=== PATIENT | male | born 1945 | race Caucasian/White ===

== ENCOUNTER 2024-09-07 16:26 | Emergency (ER) | payer MEDICARE, MEDICAID, SELFPAY ==
[2024-09-07 16:43] VITALS: BP 135/76; PULSE 78; RESP 18; TEMP 37.1; O2SAT 99; BMI 28.1
--- NOTE | 2024-09-07 16:54 | XR_ITS ---
Examination: CT maxillofacial, without intravenous contrast. 2-D sagittal reconstructions. 3-D reconstructions. Date and time of exam:September 07, 2024 1745 hours INDICATIONS: Patient fell last week with injury to the face, facial pain CTDI: vol (mGy):42.9 DLP: (mGycm):968 Technique: Multiple axial images of maxillofacial region, 3.0 mm slice thickness. 2-D sagittal and coronal reconstructions. 3-D reconstructions. Low dose protocols were performed. One or more of the following dose reduction techniques were used; automated exposure control, adjustment of the mA and/or KV according to patient size, use of iterative reconstruction technique. Findings: Frontal bone frontal sinuses intact No acute nasal bone fracture Orbital rims intact. No depression zygomatic arches The optic globes exhibit symmetry Maxilla mandible intact. IMPRESSION: No acute facial fracture
--- NOTE | 2024-09-07 16:54 | XR_ITS ---
Examination: CT brain head without contrast. 2-D sagittal coronal reconstructions Date and time of exam:September 07, 2024 1745 hours INDICATIONS: Patient fell last week with injury to the head, head pain CTDI: vol (mGy):55 DLP: (mGycm):1222 Technique: Multiple CT axial sections of the brain have been obtained, 5 mm slice thickness. Contrast has not been administered. 2-D sagittal, coronal reconstructions have been obtained Low dose protocols were performed. One or more of the following dose reduction techniques were used; automated exposure control, adjustment of the mA and/or KV according to patient size, use of iterative reconstruction technique. Findings: No significant ventricular enlargement. Intra-axial or extra-axial hemorrhage density is not seen. No mass effect or midline shift Basal cisterns are not remarkable. Fourth ventricle is midline. Cranial vault intact. Impression: Negative for acute hemorrhage, mass effect or midline shift
--- NOTE | 2024-09-07 16:54 | XR_ITS ---
Examination: CT cervical spine without contrast 2-D sagittal reconstructions 2-D coronal reconstructions 3-D reconstructions. Exam date and time:September 07, 2024 1645 hours INDICATIONS: Patient fell last week with injury to the neck, neck pain CTDI:vol (mGy) 15.5 DLP: (mGycm) 361 Technique: Multiple 2 mm axial sections of the cervical spine have been obtained. The coronal and sagittal reconstructions have been obtained. 3-D reconstructions have been obtained. Low dose protocols were performed. One or more of the following dose reduction techniques were used; automated exposure control, adjustment of the mA and/or KV according to patient size, use of iterative reconstruction technique. Findings: Axial sections demonstrate intact base of the skull. C1 exhibit satisfactory relationship to the odontoid. No acute cervical vertebral body fracture seen. Alignment posterior spinous processes satisfactory. Impression: No acute cervical fracture.
--- NOTE | 2024-09-07 16:59 | PD.EDRME ---
Rapid Medical Screening Exam RME Arrival date/time: 09/07/24 16:26 Chief Complaint: Extremity Injury, Upper Time Seen by Provider: 09/07/24 16:43 Vital signs: Vital Signs Temperature 98.8 F 09/07/24 16:43 Pulse Rate 78 09/07/24 16:43 Respiratory Rate 18 09/07/24 16:43 Blood Pressure 135/76 H 09/07/24 16:43 Pulse Oximetry (%) 99 09/07/24 16:43 Oxygen Delivery Method Room Air 09/07/24 16:43 RME Narrative: Patient is a 78-year-old male who presents to the ED after a fall that occurred 1 week ago. Patient sustained a skin tear to his left upper extremity and to his left mid back. There is erythema surrounding both wounds concerning for cellulitis. Patient also has ecchymosis to the left orbit. I have greeted and performed a focused initial assessment of this patient. A comprehensive ED assessment and evaluation of the patient, analysis of all test results, and completion of the medical decision making process will be conducted by additional ED providers.
--- NOTE | 2024-09-07 17:01 | XR_ITS ---
Examination: Duplex scan of the upper extremity, unilateral left complete Date and time of exam: September 07, 2024 1820 hours INDICATIONS: Injury to left arm one week ago with pain and swelling post injury Technique: Duplex scan of the extremity veins using B-mode/grayscale imaging and Doppler spectral analysis and color flow Attention is directed to internal echogenicity, compression and augmentation involving these veins, color flow assessment, spectral analysis Findings: Major deep venous structures in the extremity demonstrate normal course and caliber. There is no evidence of deep vein thrombosis. Normal color flow and spectral analysis Impression: Negative for DVT..
--- NOTE | 2024-09-07 17:03 | XR_ITS ---
Examination: Wrist, left 3 views Technique: Wrist AP, oblique, lateral 3 views Date and time of exam: September 07, 2024 1708 hours INDICATIONS: Injury to the wrist one week ago, wrist pain FINDINGS: Severe osteopenia Old fracture deformity ulnar styloid tip No acute fracture IMPRESSION: No acute fracture
[2024-09-07 17:34] LABS: Basophils % (Auto) 1 % (0-2.5); Eosinophils # (Auto) 0.2 Thou/mm3 (0.0-0.5); Eosinophils % (Auto) 3 % (0-10); Hematocrit 34.1 % (41.0-53.0); Hemoglobin 11.3 g/dL (13.5-16.0); Immature Granulocytes % (Auto) 1 % (0-0); Immature Granulocytes Auto 0.03 Thou/mm3 (0.00-0.00); Lymphocytes % (Auto) 17 % (10-50); Mean Corpuscular HGB Conc 33.1 g/dl (31.0-37.0); Mean Corpuscular Volume 81 fL (80-100); Monocytes # (Auto) 0.6 Thou/mm3 (0.0-0.8); Monocytes % (Auto) 10 % (0-12); Neutrophils # (Auto) 4.2 Thou/mm3 (1.8-7.7); Neutrophils % (Auto) 70 % (37-80); Nucleated Red Blood Cell % 0 /100 WBC (0); Platelet Count 203 Thou/mm3 (140-440); RDW Standard Deviation 39.6 fL (35.1-43.9); Red Blood Count 4.19 Miln/mm3 (4.50-5.90); White Blood Count 6.1 Thou/mm3 (3.8-10.6)
[2024-09-07 18:24] LABS: Albumin, Serum 4.5 gm/dL (3.4-4.8); Albumin/Globulin Ratio 1.5 (1.2-2.2); Alkaline Phosphatase 82 U/L (46-116); Anion Gap 8 (7-16); Aspartate Amino Transferase 10 U/L (0-34); BUN/Creatinine Ratio 10 Ratio (12-20); Bilirubin,Total 0.5 mg/dL (0.3-1.2); Blood Urea Nitrogen 9 mg/dL (9-23); Calcium 9.5 mg/dL (8.3-10.6); Calcium (Corrected) 9.5 mg/dL (8.5-10.1); Chloride 96 mMol/L (98-107); Creatinine (Component) 0.9 mg/dL (0.6-1.3); Estimated Creatinine Clearance 80.8 mL/min (>60); Globulin 3.1 gm/dL (2.3-3.5); Glucose 131 mg/dL (74-106); Osmolality,Calculated 261 (275-295); Potassium 4.6 mMol/L (3.4-5.1); Sodium 130 mMol/L (136-145); Total Protein 7.6 gm/dL (5.7-8.2); eGFR > 60 See Note
[2024-09-07 18:30] LABS: Alanine Aminotransferase < 7 U/L (10-49)
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
[2024-09-07 20:12] VITALS: RESP 18
== END 2024-09-07 20:12 | disposition home or self-care (01) ==
LOC: SERX 20:42
PROVIDERS: Physician Assistant; Emergency Provider Emergency Medicine
DX: S05.12XA Contusion of eyeball and orbital tissues, left eye, initial encounter (principal); S60.212A Contusion of left wrist, initial encounter; S09.90XA Unspecified injury of head, initial encounter; S19.9XXA Unspecified injury of neck, initial encounter; S49.92XA Unspecified injury of left shoulder and upper arm, initial encounter; W01.0XXA Fall on same level from slipping, tripping and stumbling without subsequent striking against object, initial encounter; Y92.009 Unspecified place in unspecified non-institutional (private) residence as the place of occurrence of the external cause
CPT/HCPCS: 36415; 70450; 70486; 72125; 73110; 80053; 85025; 93971; 99284

== ENCOUNTER → 2025-03-08 | Outpatient (CLI) | payer MEDICARE, MEDICAID, SELFPAY ==
--- NOTE | 2025-03-08 13:45 | XR_ITS ---
Examination: Bilateral hips, AP pelvis, 5 views Technique: AP, lateral views both hips, AP pelvis, 5 views Exam date and time: March 08, 2025 1353 hours INDICATIONS: Bilateral hip pain several years. FINDINGS: Mild to moderate right hip osteoarthritis Moderate left hip osteoarthritis Prominent osteopenia No hip fractures or dislocations IMPRESSION: Mild to moderate right hip osteoarthritis Moderate left hip osteoarthritis
--- NOTE | 2025-03-08 13:45 | XR_ITS ---
Examination: Lumbar spine 3 views Technique one AP lateral coned lateral lower lumbar spine 3 views Date and time: March 08, 2025 1353 hours INDICATIONS: Low back pain years COMPARISON: January 23, 2005 FINDINGS: Lumbar dextroscoliosis 15 degrees Prominent osteopenia Moderate chronic osteoporotic compression L3 No acute lumbar fracture Moderate to advanced diffuse lumbar degenerative disc disease IMPRESSION: Moderate to advanced diffuse lumbar degenerative disc disease
== END | disposition home or self-care (01) ==
LOC: SDIM 13:35
PROVIDERS: Referring Provider Nurse Practitioner Family; Visit Provider Nurse Practitioner Family
DX: M51.360 Other intervertebral disc degeneration, lumbar region with discogenic back pain only (principal); M16.0 Bilateral primary osteoarthritis of hip
CPT/HCPCS: 72100; 73522